=== PATIENT | female | born 1965 | race Caucasian/White ===

== ENCOUNTER 2022-01-20 12:21 | Outpatient (CLI) | payer BC, SELFPAY ==
--- NOTE | 2022-01-20 13:06 | MM_ITS ---
WS: [id number] BILATERAL 3D TOMOSYNTHESIS DIGITAL SCREENING MAMMOGRAPHY WITH CAD CLINICAL INFORMATION: SCREENING HISTORY: Screening mammogram. No current complaints. COMPARISON: None. TECHNIQUE: Bilateral CC and MLO views. FINDINGS: Scattered fibroglandular densities bilaterally. Punctate and lucent centered calcifications. No suspi cious focal mass, asymmetry, calcifications, or architectural distortion. No evidence of malignancy. MM/[id number] IMPRESSION: BI-RADS: 2-Benign FOLLOW UP: 1 Year Follow-up Recommend return to annual screening mammography.
== END 2022-01-20 12:22 | disposition home or self-care (01) ==
LOC: RAD 12:24
PROVIDERS: PCP Family Medicine; Visit Provider Family Medicine
DX: Z12.31 Encounter for screening mammogram for malignant neoplasm of breast (principal)
CPT/HCPCS: 77063; 77067

== ENCOUNTER 2023-01-23 12:55 | Outpatient (CLI) | payer BC, SELFPAY ==
--- NOTE | 2023-01-23 10:46 | MM_ITS ---
WS: [id number] BILATERAL 3D TOMOSYNTHESIS DIGITAL SCREENING MAMMOGRAPHY WITH CAD CLINICAL INFORMATION: SCREEN HISTORY: Screening mammogram. No current complaints. COMPARISON: 2021 TECHNIQUE: Bilateral CC and MLO views. FINDINGS: Scattered fibroglandular densities bilaterally. No suspicious focal mass, asymmetry, calcifications, or architectural distortion. No evidence of malignancy. Incidental punctate calcifications. MM/[id number] IMPRESSION: BI-RADS: 2-Benign FOLLOW UP: 1 Year Follow-up Recommend return to annual screening mammography.
== END 2023-01-23 12:56 | disposition home or self-care (01) ==
LOC: RAD 12:55
PROVIDERS: PCP Family Medicine; Visit Provider Family Medicine
DX: Z12.31 Encounter for screening mammogram for malignant neoplasm of breast (principal)
CPT/HCPCS: 77063; 77067

== ENCOUNTER → 2023-11-29 15:32 | Outpatient (BNVA) | payer BC, OTHER, SELFPAY | PROVIDERS: PCP Family Medicine; Visit Provider Emergency Medicine | DX: R39.9 Unspecified symptoms and signs involving the genitourinary system (principal); R50.9 Fever, unspecified | CPT/HCPCS: 93005 ==

== ENCOUNTER 2023-11-29 16:48 | Observation (INO) | payer BC, SELFPAY ==
[2023-11-29] VITALS (7 sets, daily range): BP systolic 116–162; BP diastolic 70–79; PULSE 91–132; RESP 16–18; TEMP 36.3–39.4; O2SAT 91–100; BMI 23.9
--- NOTE | 2023-11-29 16:50 | XRR_ITS ---
PROCEDURE INFORMATION: Exam: XR Chest Exam date and time: 11/29/2023 5:05 PM Age: 58 years old Clinical indication: Fever; Prior surgery; Surgery date: 6+ months; Surgery type: Gb TECHNIQUE: Imaging protocol: Radiologic exam of the chest. Views: 1 view. COMPARISON: CT kidney stone [id number] 11/29/2023 5:03 PM FINDINGS: Lungs: Unremarkable. No consolidation. Pleural spaces: Unremarkable. No pleural effusion. No pneumothorax. Heart/Mediastinum: Unremarkable. No cardiomegaly. Bones/joints: Unremarkable. XR/XR chest 1V portable [id number] IMPRESSION: No acute findings.
--- NOTE | 2023-11-29 16:54 | CTR_ITS ---
PROCEDURE INFORMATION: Exam: CT Abdomen And Pelvis Without Contrast Exam date and time: 11/29/2023 5:03 PM Age: 58 years old Clinical indication: Abdominal pain; Flank; Left; Prior surgery; Surgery date: 6+ months; Surgery type: Hyster, gb; Additional info: Left flank pain TECHNIQUE: Imaging protocol: Computed tomography of the abdomen and pelvis without contrast. Radiation optimization: All CT scans at this facility use at least one of these dose optimization techniques: automated exposure control; mA and/or kV adjustment per patient size (includes targeted exams where dose is matched to clinical indication); or iterative reconstruction. COMPARISON: No relevant prior studies available. RADIATION DOSE METRICS: Total DLP (mGy-cm): 430.68 FINDINGS: Lungs: Ground-glass opacity of the right middle lobe, likely atelectatic lung changes. Liver: Normal. No mass. Gallbladder and bile ducts: There has been a cholecystectomy. Pancreas: Normal. No ductal dilation. Spleen: Normal. No splenomegaly. Adrenal glands: Normal. No mass. Kidneys and ureters: Unilateral perinephric fat stranding of the left kidney, no significant hydroureteronephrosis. No obstructing nephroureterolithiasis. Stomach and bowel: See Urinary bladder finding. Appendix: No evidence of appendicitis. Intraperitoneal space: Unremarkable. No free air. No significant fluid collection. Vasculature: Unremarkable. No abdominal aortic aneurysm. Lymph nodes: Unremarkable. No enlarged lymph nodes. Urinary bladder: No recently passed stones in the bladder.Stomach, small bowel, and large bowel are nondilated. Reproductive: Unremarkable as visualized. Bones/joints: Unremarkable. No acute fracture. Soft tissues: Unremarkable. CT/CT kidney stone [id number] IMPRESSION: 1. Unilateral left renal perinephric fat stranding, which can be seen with infectious processes. 2. No hydronephrosis, or obstructing nephroureterolithiasis. 3. No recently passed stones in the bladder.
--- NOTE | 2023-11-29 16:58 | ECG_ITS ---
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 Measurements Intervals [place] Rate: 121 P: 31 TX: 124 QRS: 51 QRSD: 75 T: 46 QT: 296 QTc: 421 Interpretive Statements SINUS TACHYCARDIA NONSPECIFIC ST & T-WAVE ABNORMALITY ABNORMAL RHYTHM ECG No previous ECG available for comparison Electronically Signed On 11-29-2023 18:55:01 CDT by Faisal Chicas M.D. [email or web address] the Interview/store/OM/[id number]
--- NOTE | 2023-11-29 17:04 | ED_ITS ---
Documented by User: Ivy Nevarez MD 11/29/23 17:07 HPI - Weakness 2 General: Chief complaint: Weakness Stated complaint: WEAKNESS; UTI Time Seen by Provider: 11/29/23 16:50 Source: patient Mode of arrival: ambulatory Limitations: no limitations History of Present Illness: 58-year-old female who has a history of urinary tract infections along with kidney stones states that over the last 2 days she has been having some fatigue she states that she started having odorous urine she is also been febrile she is febrile here. She states she has had some left lower abdominal pain and left- sided flank pain states the pain is mild in nature but has had previous kidney stones. Denies any cough. Associated symptoms: Reports dysuria and fever(s); Denies chest pain, chills, headache(s), nausea or vomiting Review of Systems 2 Const: Reports: fever(s) and fatigue; Denies: chills, body aches or change in appetite ENMT: Denies: throat pain or dental pain Card: Denies: chest pain Resp: Denies: dyspnea GI: Reports: abdominal pain; Denies: nausea, vomiting or diarrhea : Reports: flank pain and dysuria Musc: Denies: neck pain or back pain Skin/Breast: Denies: rash Neuro: Denies: headache(s) Psych: Denies: depression Physical Exam 2 Const: COMMON NORMALS: no acute distress, patient oriented x3 and healthy appearing HENMT: COMMON NORMALS: normocephalic and atraumatic HEAD & SCALP: n ormocephalic and atraumatic Eye: COMMON NORMALS: conjunctivae normal CONJUNCTIVA: Yes conjunctivae normal Neck/C-Spine: COMMON NORMALS: full ROM and supple Chest: COMMONS NORMALS: normal inspection of the chest Resp: COMMON NORMALS: normal respiratory effort, No retractions, No use of accessory muscles and clear to auscultation bilaterally AUSCULTATION: clear to auscultation bilaterally Cardio: COMMON NORMALS: regular rhythm and No murmurs present (Cardio) R ATE: tachycardic RHYTHM: regular rhythm GI: COMMON NORMALS: Normal to inspection, nondistended, normoactive bowel sounds present, Soft to palpation, non-tender and no masses PALPATION: Yes Soft to palpation Extremity: COMMON NORMALS: normal to inspection and full ROM Neuro: COMMON NORMALS: patient oriented x3, moves all extremities and no focal motor deficits Psych: COMMON NORMALS: mental status grossly normal, Normal thought process present and cooperative THOUGHT PROCESS: Normal thought process present Skin: COMMON NORMALS: no rashes or lesions noted and no wounds GENERAL SKIN EXAM: no rashes or lesions noted Course 2 Vital Signs: Vital signs: Vital Signs Temperature 97.4 F L 11/29/23 20:22 Pulse Rate 91 11/29/23 20:22 Respiratory Rate 17 11/29/23 20:22 Blood Pressure 116/72 11/29/23 20:22 Pulse Oximetry 91 11/29/23 20:22 Oxygen Delivery Me thod Room Air 11/29/23 20:22 MDM - Weakness Lab Data 11/29/23 16:33 11/29/23 16:33 Radiology Impressions Chest X-Ray 11/29/23 16:50 IMPRESSION: No acute findings. Abdomen/Pelvis CT 11/29/23 16:54 IMPRESSION: 1. Unilateral left renal perinephric fat stranding, which can be seen with infectious processes. 2. No hydronephrosis, or obstructing nephroureterolithiasis. 3. No recently passed stones in the bladder. Laboratory Results WBC 21.75 10^3/uL (3.29-11.43) H 11/29/23 16:33 RBC 4.70 10^6/uL (3.85-5.65) 11/29/23 16:33 Hgb 14.20 g/dL (11.27-16.99) 11/29/23 16:33 Hct 42.0 % (36-47) 11/29/23 16:33 MCV 89.4 fl (85-98) 11/29/23 16:33 MCH 30.2 pg (27-33) 11/29/23 16:33 MCHC 33.8 g/dL (30-55) 11/29/23 16:33 RDW 12.6 % (12.1-15.1) 11/29/23 16:33 Plt Count 333 10^3/cmm (157-399) 11/29/23 16:33 MPV 10.4 fL (7.4-10.4) 11/29/23 16:33 Neut % (Auto) 84.3 % 11/29/23 16:33 Lymph % (Auto) 6.5 % 11/29/23 16:33 [place] % (Auto) 8.6 % 11/29/23 16:33 Eos % (Auto) 0.0 % 11/29/23 16:33 Baso % (Auto) 0.1 % 11/29/23 16:33 Neut # (Auto) 18.34 10^3/uL (1.8-7.7) H 11/29/23 16:33 Lymph # (Auto) 1.4 10^3/uL (0.8-4.8) 11/29/23 16:33 [place] # (Auto) 1.9 10^3/uL (0.2-0.9) H 11/29/23 16:33 Eos # (Auto) 0.0 10^3/uL (0.0-0.8) 11/29/23 16:33 Baso # (Auto) 0.0 10^3/uL (0.0-0.1) 11/29/23 16:33 Nucleated RBC % (auto) 0 % 11/29/23 16: Nucleated RBCs # 0.0 /100WBC 11/29/23 16:33 Sodium 135 mmol/L (136-145) L 11/29/23 16:33 Potassium 4.3 mmol/L (3.5-5.1) 11/29/23 16:33 Chloride 97 mmol/L (98-107) L 11/29/23 16:33 Carbon Dioxide 26 mmol/L (22-29) 11/29/23 16:33 Anion Gap 16.3 (5-19) 11/29/23 16:33 BUN 15 mg/dL (6-20) 11/29/23 16:33 Creatinine 0.9 mg/dL (0.5-0.9) 11/29/23 16:33 GFR Calculation 64.8 mL/min (90-130) L 11/29/23 16:33 Glucose 128 mg/dL (65-115) H 11/29/23 16:33 Calculated Osmolality 282 mOsm/kg (285-295) L 11/29/23 16:33 Lactic Acid 1.3 mmol/L (0.5-2.2) 11/29/23 16:33 Calcium 9.9 mg/dL (8.5-10.5) 11/29/23 16:33 Total Bilirubin 0.9 mg/dL (0.15-1.2) 11/29/23 16:33 AST 20 U/L (0-32) 11/29/23 16:33 ALT 19 U/L (0-33) 11/29/23 16:33 Alkaline Phosphatase 136 U/L (35-105) H 11/29/23 16:33 Total Protein 8.3 g/dL (6.6-8.7) 11/29/23 16:33 Albumin 4.4 g/dL (3.5-5.2) 11/29/23 16:33 Globulin 3.9 g/dL (1.3-4.6) 11/29/23 16:33 Lipase 11 U/L (13-60) L 11/29/23 16:33 Urine Color Yellow (Yellow) 11/29/23 17:53 Urine Appearance Cloudy (CLEAR) A 11/29/23 17:53 Urine pH 5 (5-7) 11/29/23 17:53 Ur Specific [place] 1.020 (1.005-1.030) 11/29/23 17:53 Urine Protein 1+ (Negative) H 11/29/23 17:53 Urine Glucose (UA) Norm (Normal) 11/29/23 17:53 Urine Ketones 1+ (Negative) H 11/29/23 17:53 Urine Blood 3+ (Negative) H 11/29/23 17:53 Urine Nitrate Positive (Negative) H 11/29/23 17:53 Urine Bilirubin Neg (Negative) 11/29/23 17:53 Urine Urobilinogen Norm mg/dL (Negative) 11/29/23 17:53 Ur Leukocyte Esterase 2+ (Negative) H 11/29/23 17:53 Urine RBC 5-10 /hpf (0-2) H 11/29/23 17:53 Urine WBC 25-40 /hpf (0-5) H 11/29/23 17:53 Ur Squamous Epith Cells 0-4 /hpf (0-5) H 11/29/23 17:53 Amorphous Sediment Not Reportable 11/29/23 17:53 Urine Bacteria 2+ /hpf (NONE) H 11/29/23 17:53 Influenza Type A Ag negative (Negative) 11/29/23 17:13 Influenza Type B Ag negative (Negative) 11/29/23 17:13 SARS-CoV-2 Ag (Rapid) negative (Negative) 11/29/23 17:13 Discharge Plan Discharge Patient Disposition: Admitted As Inpatient Admit Provider: Blane Helms Clinical Impression: Pyelonephritis Condition: Stable Coding Level of Care Code ED Rolloff Driver for Chg Fwd Documented by User: Palmer Martinez, DO 11/29/23 22:40 HPI - Weakness 2 General: Chief complaint: Weakness Stated complaint: WEAKNESS; UTI Time Seen by Provider: 11/29/23 16:50 Course 2 Vital Signs: Vital signs: Vital Signs Temperature 97.4 F L 11/29/23 20:22 Pulse Rate 91 11/29/23 20:22 Respiratory Rate 17 11/29/23 20:22 Blood Pressure 116/72 11/29/23 20:22 Pulse Oximetry 91 11/29/23 20:22 Oxygen Delivery Me thod Room Air 11/29/23 20:22 MDM - Weakness Medical Decision Making 58-year-old female checked out at shift change. This young lady has flank pain, with a high fever 102.9. Her white blood cell count is 22. Lactate is normal. Chest x-ray is negative. CT shows left renal perinephric fat stranding consistent with her urinalysis. She has pyelonephritis. No stone or obstruction noted. With her significant fever and leukocytosis, with findings on CT, beneficial to hospitalize. She is received a sepsis bolus as well as IV Rocephin. We have a call out to the hospitalist. Lab Data 11/29/23 16:33 11/29/23 16:33 Radiology Impressions Chest X-Ray 11/29/23 16:50 IMPRESSION: No acute findings. Abdomen/Pelvis CT 11/29/23 16:54 IMPRESSION: 1. Unilateral left renal perinephric fat stranding, which can be seen with infectious processes. 2. No hydronephrosis, or obstructing nephroureterolithiasis. 3. No recently passed stones in the bladder. Laboratory Results WBC 21.75 10^3/uL (3.29-11.43) H 11/29/23 16: RBC 4.70 10^6/uL (3.85-5.65) 11/29/23 16:33 Hgb 14.20 g/dL (11.27-16.99) 11/29/23 16:33 Hct 42.0 % (36-47) 11/29/23 16:33 MCV 89.4 fl (85-98) 11/29/23 16:33 MCH 30.2 pg (27-33) 11/29/23 16: MCHC 33.8 g/dL (30-55) 11/29/23 16:33 RDW 12.6 % (12.1-15.1) 11/29/23 16: Plt Count 333 10^3/cmm (157-399) 11/29/23 16: MPV 10.4 fL (7.4-10.4) 11/29/23 16:33 Neut % (Auto) 84.3 % 11/29/23 16:33 Lymph % (Auto) 6.5 % 11/29/23 16:33 [place] % (Auto) 8.6 % 11/29/23 16:33 Eos % (Auto) 0.0 % 11/29/23 16:33 Baso % (Auto) 0.1 % 11/29/23 16: Neut # (Auto) 18.34 10^3/uL (1.8-7.7) H 11/29/23 16:33 Lymph # (Auto) 1.4 10^3/uL (0.8-4.8) 11/29/23 16:33 [place] # (Auto) 1.9 10^3/uL (0.2-0.9) H 11/29/23 16:33 Eos # (Auto) 0.0 10^3/uL (0.0-0.8) 11/29/23 16: Baso # (Auto) 0.0 10^3/uL (0.0-0.1) 11/29/23 16: Nucleated RBC % (auto) 0 % 11/29/23 16: Nucleated RBCs # 0.0 /100WBC 11/29/23 16: Sodium 135 mmol/L (136-145) L 11/29/23 16:33 Potassium 4.3 mmol/L (3.5-5.1) 11/29/23 16:33 Chloride 97 mmol/L (98-107) L 11/29/23 16:33 Carbon Dioxide 26 mmol/L (22-29) 11/29/23 16:33 Anion Gap 16.3 (5-19) 11/29/23 16:33 BUN 15 mg/dL (6-20) 11/29/23 16:33 Creatinine 0.9 mg/dL (0.5-0.9) 11/29/23 16:33 GFR Calculation 64.8 mL/min (90-130) L 11/29/23 16:33 Glucose 128 mg/dL (65-115) H 11/29/23 16:33 Calculated Osmolality 282 mOsm/kg (285-295) L 11/29/23 16:33 Lactic Acid 1.3 mmol/L (0.5-2.2) 11/29/23 16:33 Calcium 9.9 mg/dL (8.5-10.5) 11/29/23 16:33 Total Bilirubin 0.9 mg/dL (0.15-1.2) 11/29/23 16:33 AST 20 U/L (0-32) 11/29/23 16:33 ALT 19 U/L (0-33) 11/29/23 16:33 Alkaline Phosphatase 136 U/L (35-105) H 11/29/23 16:33 Total Protein 8.3 g/dL (6.6-8.7) 11/29/23 16:33 Albumin 4.4 g/dL (3.5-5.2) 11/29/23 16:33 Globulin 3.9 g/dL (1.3-4.6) 11/29/23 16:33 Lipase 11 U/L (13-60) L 11/29/23 16:33 Urine Color Yellow (Yellow) 11/29/23 17:53 Urine Appearance Cloudy (CLEAR) A 11/29/23 17:53 Urine pH 5 (5-7) 11/29/23 17:53 Ur Specific [place] 1.020 (1.005-1.030) 11/29/23 17:53 Urine Protein 1+ (Negative) H 11/29/23 17:53 Urine Glucose (UA) Norm (Normal) 11/29/23 17:53 Urine Ketones 1+ (Negative) H 11/29/23 17:53 Urine Blood 3+ (Negative) H 11/29/23 17:53 Urine Nitrate Positive (Negative) H 11/29/23 17:53 Urine Bilirubin Neg (Negative) 11/29/23 17:53 Urine Urobilinogen Norm mg/dL (Negative) 11/29/23 17:53 Ur Leukocyte Esterase 2+ (Negative) H 11/29/23 17:53 Urine RBC 5-10 /hpf (0-2) H 11/29/23 17:53 Urine WBC 25-40 /hpf (0-5) H 11/29/23 17:53 Ur Squamous Epith Cells 0-4 /hpf (0-5) H 11/29/23 17:53 Amorphous Sediment Not Reportable 11/29/23 17:53 Urine Bacteria 2+ /hpf (NONE) H 11/29/23 17:53 Influenza Type A Ag negative (Negative) 11/29/23 17:13 Influenza Type B Ag negative (Negative) 11/29/23 17:13 SARS-CoV-2 Ag (Rapid) negative (Negative) 11/29/23 17:13 All radiology interpretation(s) finalized by discharge Discharge Plan Discharge Patient Disposition: Admitted As Inpatient Admit Provider: Blane Helms Clinical Impression: Pyelonephritis Condition: Stable Coding Level of Care Code ED Rolloff Driver for Indu Joseph
[2023-11-29 17:10] LABS: Basophils % 0.1 %; Lymphocytes # 1.4 10^3/uL (0.8-4.8); Lymphocytes % 6.5 %; Mean Corpuscular HGB Conc 33.8 g/dL (30-55); Mean Corpuscular Hemoglobin 30.2 pg (27-33); Mean Corpuscular Volume 89.4 fl (85-98); Mean Platelet Volume 10.4 fL (7.4-10.4); Monocytes # 1.9 10^3/uL (0.2-0.9); Monocytes % 8.6 %; Neutrophils # 18.34 10^3/uL (1.8-7.7); Neutrophils % 84.3 %; Nucleated Red Blood Cells % 0 %; Platelet Count 333 10^3/cmm (157-399); Red Cell Distribution Width 12.6 % (12.1-15.1); White Blood Count 21.75 10^3/uL (3.29-11.43)
[2023-11-29] MEDS: acetaminophen 500 mg Tablet 1000 MG PO (17:17)
[2023-11-29] MEDS: ketorolac 30 mg/mL INJ 15 MG IVP (17:17)
[2023-11-29 17:29] LABS: Lactic Sepsis W/Reflex 1.3 mmol/L (0.5-2.2)
[2023-11-29 17:30] LABS: Alanine Aminotransferase 19 U/L (0-33); Albumin Level 4.4 g/dL (3.5-5.2); Alkaline Phosphatase 136 U/L (35-105); Anion Gap 16.3 (5-19); Aspartate Amino Transferase 20 U/L (0-32); Blood Urea Nitrogen 15 mg/dL (6-20); Calcium 9.9 mg/dL (8.5-10.5); Carbon Dioxide 26 mmol/L (22-29); Chloride 97 mmol/L (98-107); Globulin 3.9 g/dL (1.3-4.6); Glomerular Filtration Rate 64.8 mL/min (90-130); Glucose 128 mg/dL (65-115); Lipase 11 U/L (13-60); Osmolality Calculated 282 mOsm/kg (285-295); Potassium 4.3 mmol/L (3.5-5.1); Sodium 135 mmol/L (136-145); Total Bilirubin 0.9 mg/dL (0.15-1.2); Total Protein 8.3 g/dL (6.6-8.7)
[2023-11-29] MEDS: sodium chloride 0.9% 1,000 ML 999 ML IV ×3 (17:40→21:07)
[2023-11-29] MEDS: cefTRIAXone 1,000 MG in sodium chloride 0.9% (plus) 50 ML 100 MG IV (17:40)
[2023-11-29 17:41] LABS: Influenza A by IFA negative (Negative); Influenza B by IFA negative (Negative); SARS Covid-2 Antigen negative (Negative)
[2023-11-29 18:07] LABS: Bilirubin Urine Neg (Negative); Blood Urine 3+ (Negative); Glucose Urine UA Norm (Normal); Ketones Urine 1+ (Negative); Nitrate Urine Positive (Negative); Protein Urine 1+ (Negative); Urine Appearance Cloudy (CLEAR); Urine Color Yellow (Yellow); Urobilinogen Urine Norm (Negative); pH Urine 5 (5-7)
[2023-11-29 18:08] LABS: Add Urine Culture? Yes; Add Urine Microscopic? YES; Bacteria Urine 2+ /hpf; Leukocyte Esterase Urine 2+ (Negative); Squamous Epithelial Cell Urine 0-4 /hpf (0-5); WBC Urine 25-40 /hpf (0-5)
--- NOTE | 2023-11-29 19:43 | P.HP_ITS ---
Providers/Chief Complaint 2 Primary Care Provider: Rich Jones Chief Complaint: WEAKNESS; UTI History of Present Illness Renuka Peoples is a 58 year old female with a past medical history significant for GERD, chronic pain, urinary tract infections, and prior nephrolithiasis who presents emergency department with fatigue and urinary complaints. Patient reports symptoms started on Thursday. She endorses fever, left lower quadrant abdominal pain, and left-sided flank pain. She currently rates the pain 6 out of 10. It was worse before the pain medications. Exertion worsens. Rest improves. Patient reports a history of recurrent UTIs as well as kidney stones require removal. In the emergency department, patient was found to have left-sided pyelonephritis. There is no hydronephrosis or obstructing stone. She was started on ceftriaxone. Review of Systems 2 Narrative: A complete review of systems was obtained and is negative except as stated in HPI. Medications/Allergies Home Medications Medication Instructions Recorded Confirmed Last Taken Type meloxicam 7.5 mg tablet 7.5 mg PO DAILY 11/29/23 11/29/23 Unknown History omeprazole 20 mg capsule,delayed 20 mg PO DAILY 11/29/23 11/29/23 Unknown History release pravastatin 10 mg tablet 10 mg PO DAILY 11/29/23 11/29/23 Unknown History tramadol 50 mg tablet 50 mg PO Q6H PRN 11/29/23 11/29/23 Unknown History Allergies Allergy/AdvReac Type Severity Reaction Status Date / Time phenobarbital Allergy Mild rash/fever Verified 11/29/23 16:56 phenytoin [From Dilantin] Allergy Mild rash/fever Verified 11/29/23 16:56 PFSH Acute 2 PFSH: Medical History Nephrolithiasis Surgical History History of hysterectomy History of cholecystectomy Family History Father Heart disease Mother Heart disease Social History Smoking and tobacco/nicotine status: never used tobacco/nicotine Alcohol intake: never Substance/Drug Use: never Vitals/I&O/Wt Last Vital Signs Temp 102.9 F H 11/29/23 16:50 Pulse 106 H 11/29/23 19:32 Resp 16 11/29/23 19:32 BP 142/79 11/29/23 19:32 Pulse Ox 96 11/29/23 19:32 O2 Del Method Room Air 11/29/23 19:32 Weight last 48 hrs Weight 61.235 kg Physical Exam 2 Narrative: General: Patient is awake appears fatigued but pleasant. Head: Normocephalic. Atraumatic. EOM intact. Mucous membranes are dry. Neck: No JVD. Cardiovascular: Mildly tachycardic. No gallops. No murmurs. No peripheral edema. Lungs: Clear to auscultation, no use of accessory muscles, no crackles or wheezes. Skin: No jaundice. No rashes. Abdomen: Normal bowel sounds, abdomen soft. Extremities: No cyanosis or clubbing. Musculoskeletal: No swollen or erythematous joints. Neurological: Moves all 4 extremities. No myoclonus. Data 11/29/23 16:33 11/29/23 16:33 Micro: Microbiology 11/29/23 17:25 Blood Culture - Preliminary Blood SPECIMEN COLLECTED 11/29/23 17:18 Blood Culture - Preliminary Blood SPECIMEN COLLECTED A&P Assessment and plan (1) Pyelonephritis: SIRS: Tachycardic, leukocytosis, febrile CT scan reviewed, left-sided perinephric fat stranding noted; no hydronephrosis or obstructing stone Start ceftriaxone Start IV fluids Pain control Follow cultures Supportive care (2) Dehydration: Start IV fluids Antiemetics as needed Repeat labs in a.m. (3) GERD (gastroesophageal reflux disease): Continue PPI (4) Chronic pain: Continue home tramadol IV analgesics as needed for breakthrough pain Plan DVT prophylaxis: Lovenox CODE STATUS: Full code Attestations 2 Medical Necessity Statement*: Patient presents with pyelonephritis with expected hospitalization not to cross 2 midnights for IV fluid resuscitation, IV antibiotics, analgesics and supportive care. Coding Level of Care Code Acute Code for [facility] Diagnoses Pyelonephritis N12 Dehydration E86.0 GERD (gastroesophageal reflux disease) K21.9 Chronic pain G89.29
[2023-11-29] MEDS: enoxaparin 40 mg/0.4 mL Syringe SUBCUT (21:15)
[2023-11-29] MEDS: dextrose 5%-sod chloride 0.45% 1,000 ML 75 ML IV (22:21)
[2023-11-30] VITALS (8 sets, daily range): BP systolic 105–120; BP diastolic 65–71; PULSE 84–114; RESP 16–18; TEMP 36.8–38.3; O2SAT 94–99
[2023-11-30] MEDS: morphine 4 mg/mL SDV 1 mL 2 MG IVP ×2 (02:24→11:49)
[2023-11-30] MEDS: ondansetron 2 mg/ML SDV 2 mL 4 MG IVP (02:24)
[2023-11-30 03:31] LABS: Basophils % 0.1 %; Eosinophils % 0.1 %; Hematocrit 33.9 % (36-47); Lymphocytes # 1.7 10^3/uL (0.8-4.8); Lymphocytes % 12.5 %; Mean Corpuscular HGB Conc 32.4 g/dL (30-55); Mean Corpuscular Hemoglobin 29.3 pg (27-33); Mean Corpuscular Volume 90.4 fl (85-98); Mean Platelet Volume 9.4 fL (7.4-10.4); Monocytes # 1.5 10^3/uL (0.2-0.9); Monocytes % 10.8 %; Neutrophils # 10.56 10^3/uL (1.8-7.7); Neutrophils % 76.2 %; Nucleated Red Blood Cells % 0 %; Platelet Count 301 10^3/cmm (157-399); Red Blood Count 3.75 10^6/uL (3.85-5.65); Red Cell Distribution Width 12.8 % (12.1-15.1); White Blood Count 13.87 10^3/uL (3.29-11.43)
[2023-11-30 03:50] LABS: Anion Gap 10.7 (5-19); Blood Urea Nitrogen 10 mg/dL (6-20); Calcium 8.3 mg/dL (8.5-10.5); Carbon Dioxide 24 mmol/L (22-29); Chloride 110 mmol/L (98-107); Creatinine Clr Calc Pharmacy 79.2398; Glomerular Filtration Rate 86.6 mL/min (90-130); Glucose 133 mg/dL (65-115); Osmolality Calculated 293 mOsm/kg (285-295); Phosphorus 1.3 mg/dL (2.5-4.5); Potassium 3.7 mmol/L (3.5-5.1); Sodium 141 mmol/L (136-145)
--- NOTE | 2023-11-30 08:31 | PC.NURSE ---
Patient complaining of a headache, rating it 5/10. Currently afebrile. Physician notified.
[2023-11-30] MEDS: acetaminophen 325 mg Tablet 650 MG PO ×2 (08:50→16:34)
[2023-11-30] MEDS: pantoprazole DR 40 mg Tablet PO (08:51)
[2023-11-30] MEDS: atorvastatin 40 mg Tablet 20 MG PO (08:51)
[2023-11-30] MEDS: cefTRIAXone 1,000 MG in sodium chloride 0.9% (plus) 50 ML 100 MG IV (09:24)
--- NOTE | 2023-11-30 09:44 | PC.CHAP ---
Pastoral Care Encounter/Spiritual Assessment Type of Contact [] Declined paleology teacher visit [] Patient/Family/Request visit [] Outpatient visit [] Follow-up visit [] Physician referral [] Code/Alert [x] Routine visit [] Staff referral [] Actively dying [] Patient sleeping [] Family support [] [] Out of room [] Palliative care [] [] Receiving care in room [] Pre-surgical visit [] Trauma [] Long length of stay [] ICU visit [] Other: Relational/Emotional Strength [] Patient feels connected with others/family/visitors/staff [] Distress [] Loneliness/isolation [] Abandonment Spirituality of Patient [x] Person of Violet [x] Attends Anglican of their Violet [x] Believes in Prayer [x] Reads Bible or Zoroastrian materials [] There are Spiritual issues to be addressed Rim Technician Interventions [x] Prayer [x] Active listening [] Non-anxious presence [] Spiritual/emotional support [] Crisis/trauma care [] Spiritual counseling [] Bereavement support [] Provided bereavement packet [] Provided Bible/devotional materials [] Provided toy/stuffed animal, coloring book to patient or family member [] Provided Communion [] Anointing/[place] [] Salvation [x] Completed spiritual assessment [] Other: Impact on Illness or Injury [] Angry [] Fearful [] Anxious [] Often cries [] Exhaustion [] Unable to work [] Unable to attend roman catholic [] Unable to walk/stand [] Unable to read [] Unable to drive [] Unable to eat/drink [] Unable to sleep [] Unable to be with family [] Patient intubated [] Other: Summary Time spent with patient 10min
[2023-11-30] MEDS: dextrose 5%-sod chloride 0.45% 1,000 ML 75 ML IV ×2 (12:48→23:23)
--- NOTE | 2023-11-30 15:49 | P.PN_ITS ---
Subjective 2 Subjective: Patient feeling some better. Headache improved with Tylenol this morning. Less nauseous but not wanting to eat a regular diet. Just asking for Jell-O. Still with some pain in the left flank. Vitals/I&O/Wt Last Vital Signs Temp 98.3 F 11/30/23 12:00 Pulse 84 11/30/23 12:00 Resp 17 11/30/23 12:00 BP 105/66 11/30/23 12:00 Pulse Ox 97 11/30/23 12:00 O2 Del Method Room Air 11/30/23 12:00 11/30/23 11/30/23 11/30/23 06:59 14:59 22:59 Intake Total 480 / 3770 1890 / 1890 Balance 480 / 3770 1890 / 1890 Weight last 48 hrs Weight 61.235 kg Weight 61.235 kg Weight 61.235 kg Physical Exam 2 Narrative: No acute distress seen sitting up in bed. Heart: Regular normal S1-S2 without murmurs clicks gallops or rubs Lungs clear to auscultation without wheezes rales or rhonch Abdomen soft nontender nondistended positive bowel sounds no hepatosplenomegaly Left flank pain to palpation Extremities no clubbing cyanosis or edema i Data 11/30/23 03:16 11/30/23 03:16 Micro: Microbiology 11/29/23 17:25 Blood Culture - Preliminary Blood SPECIMEN COLLECTED 11/29/23 17:18 Blood Culture - Preliminary Blood SPECIMEN COLLECTED CT Abd/Pel: Radiologist's impression: IMPRESSION: 1. Unilateral left renal perinephric fat stranding, which can be seen with infectious processes. 2. No hydronephrosis, or obstructing nephroureterolithiasis. 3. No recently passed stones in the bladder. A&P Assessment and plan (1) Pyelonephritis: SIRS: Tachycardic, leukocytosis, febrile-now with marked improvement of WBC, mild tachycardia: Mild fever CT scan reviewed, left-sided perinephric fat stranding noted; no hydronephrosis or obstructing stone Continue ceftriaxone Continue IV fluids Pain control Follow cultures Supportive care Order soft diet (2) Dehydration: Continue IV fluids Antiemetics as needed Repeat labs in a.m. (3) GERD (gastroesophageal reflux disease): Continue PPI Qualifiers: Esophagitis presence: esophagitis presence not specified Qualified Code(s): K21.9 - Gastro-esophageal reflux disease without esophagitis (4) Chronic pain: Continue home tramadol IV analgesics as needed for breakthrough pain Qualifiers: Chronic pain type: other chronic pain Qualified Code(s): G89.29 - Other chronic pain Plan DVT prophylaxis: Lovenox CODE STATUS: Full code Attestations 2 Medical Necessity Statement*: Patient requires continued hospitalization for pyelonephritis Coding Level of Care Code Acute Code for [facility] Diagnoses Pyelonephritis N12 Dehydration E86.0 Gastroesophageal reflux disease, unspecified whether esophagitis present K21.9 Esophagitis presence: esophagitis presence not specified Other chronic pain G89.29 Chronic pain type: other chronic pain
[2023-11-30] MEDS: enoxaparin 40 mg/0.4 mL Syringe SUBCUT (20:02)
[2023-11-30] MEDS: ketorolac 10 mg Tablet PO (23:23)
[2023-12-01 04:00] VITALS: BP 128/77; PULSE 86; RESP 18; TEMP 36.8; O2SAT 99
[2023-12-01 07:56] VITALS: BP 132/76; PULSE 92; RESP 18; TEMP 36.1; O2SAT 96
[2023-12-01] MEDS: atorvastatin 40 mg Tablet 20 MG PO (08:41)
[2023-12-01] MEDS: cefTRIAXone 1,000 MG in sodium chloride 0.9% (plus) 50 ML 100 MG IV (08:41)
[2023-12-01] MEDS: pantoprazole DR 40 mg Tablet PO (08:41)
--- NOTE | 2023-12-01 10:26 | P.DS_ITS ---
Discharge Providers Date of Admission: 11/29/23 20:22 Date of Discharge: December 01, 2023 Attending Provider at Admission: Blane Helms MD Attending Provider at Discharge: Medhat Peraza DO Primary Care Provider: Rich Jones Diagnoses at Discharge Discharge Diagnosis (1) Pyelonephritis: Status: Acute (2) Dehydration: Status: Acute (3) GERD (gastroesophageal reflux disease): Status: Acute Qualifiers: Esophagitis presence: esophagitis presence not specified Qualified Code(s): K21.9 - Gastro-esophageal reflux disease without esophagitis (4) Chronic pain: Status: Chronic Qualifiers: Chronic pain type: other chronic pain Qualified Code(s): G89.29 - Other chronic pain Reason for Visit Reason for Visit: WEAKNESS; UTI Hospital Course Hospital Course Patient was admitted for left-sided pyelonephritis. She has a history of a left ureteral stone that was removed at [facility] a few months ago. Patient was started on ceftriaxone and given IV fluids. Patient improved quickly. Her fever defervesced over the past 24 hours. She is feeling much improved. There is concern for structural abnormality given the fact that patient had a stone in the left ureter and now has a pyelonephritis. She is instructed to follow-up with her urologist that she saw at [facility] a few months back. Patient will be discharged home on Cipro for a total of 10 days. Cultures will be followed up and if changes need to be made we will work with her PCP. Physical Exam Narrative: No acute distress Heart regular normal S1-S2 without murmurs clicks gallops or rubs Lungs clear to auscultation without wheezes rales or rhonchi Abdomen soft nontender nondistended positive bowel sounds Very mild pain to palpation of the left CVA Extremities no clubbing cyanosis or edema Discharge Data Studies Completed and Pending Completed Studies During Hospitalization Category Date Time Status CT abdomen renal stone [CT kidney stone [id number]] Stat Cat Scan 11/29/23 16:54 Completed XR chest 1V portable [id number] Stat Exams 11/29/23 16:50 Completed Pending at discharge Category Date Time Status Blood Culture Stat Lab 11/29/23 17:25 Results Urine Culture Stat Lab 11/29/23 17:53 Results Radiology Impressions Chest X-Ray 11/29/23 16:50 IMPRESSION: No acute findings. Abdomen/Pelvis CT 11/29/23 16:54 IMPRESSION: 1. Unilateral left renal perinephric fat stranding, which can be seen with infectious processes. 2. No hydronephrosis, or obstructing nephroureterolithiasis. 3. No recently passed stones in the bladder. Laboratory Results WBC 13.87 10^3/uL (3.29-11.43) H 11/30/23 03:16 RBC 3.75 10^6/uL (3.85-5.65) L 11/30/23 03:16 Hgb 11.00 g/dL (11.27-16.99) L 11/30/23 03:16 Hct 33.9 % (36-47) L 11/30/23 03:16 MCV 90.4 fl (85-98) 11/30/23 03:16 MCH 29.3 pg (27-33) 11/30/23 03:16 MCHC 32.4 g/dL (30-55) 11/30/23 03:16 RDW 12.8 % (12.1-15.1) 11/30/23 03:16 Plt Count 301 10^3/cmm (157-399) 11/30/23 03:16 MPV 9.4 fL (7.4-10.4) 11/30/23 03:16 Neut % (Auto) 76.2 % 11/30/23 03:16 Lymph % (Auto) 12.5 % 11/30/23 03:16 [place] % (Auto) 10.8 % 11/30/23 03:16 Eos % (Auto) 0.1 % 11/30/23 03:16 Baso % (Auto) 0.1 % 11/30/23 03:16 Neut # (Auto) 10.56 10^3/uL (1.8-7.7) H 11/30/23 03:16 Lymph # (Auto) 1.7 10^3/uL (0.8-4.8) 11/30/23 03:16 [place] # (Auto) 1.5 10^3/uL (0.2-0.9) H 11/30/23 03:16 Eos # (Auto) 0.0 10^3/uL (0.0-0.8) 11/30/23 03:16 Baso # (Auto) 0.0 10^3/uL (0.0-0.1) 11/30/23 03:16 Nucleated RBC % (auto) 0 % 11/30/23 03:16 Nucleated RBCs # 0.0 /100WBC 11/30/23 03:16 Sodium 141 mmol/L (136-145) 11/30/23 03:16 Potassium 3.7 mmol/L (3.5-5.1) 11/30/23 03:16 Chloride 110 mmol/L (98-107) H 11/30/23 03:16 Carbon Dioxide 24 mmol/L (22-29) 11/30/23 03:16 Anion Gap 10.7 (5-19) 11/30/23 03:16 BUN 10 mg/dL (6-20) 11/30/23 03:16 Creatinine 0.7 mg/dL (0.5-0.9) 11/30/23 03:16 GFR Calculation 86.6 mL/min (90-130) L 11/30/23 03:16 Glucose 133 mg/dL (65-115) H 11/30/23 03:16 Calculated Osmolality 293 mOsm/kg (285-295) 11/30/23 03:16 Lactic Acid 1.3 mmol/L (0.5-2.2) 11/29/23 16:33 Calcium 8.3 mg/dL (8.5-10.5) L 11/30/23 03:16 Phosphorus 1.3 mg/dL (2.5-4.5) L 11/30/23 03:16 Magnesium 2.0 mg/dL (1.7-2.3) 11/30/23 03:16 Total Bilirubin 0.9 mg/dL (0.15-1.2) 11/29/23 16:33 AST 20 U/L (0-32) 11/29/23 16:33 ALT 19 U/L (0-33) 11/29/23 16:33 Alkaline Phosphatase 136 U/L (35-105) H 11/29/23 16:33 Total Protein 8.3 g/dL (6.6-8.7) 11/29/23 16:33 Albumin 4.4 g/dL (3.5-5.2) 11/29/23 16:33 Globulin 3.9 g/dL (1.3-4.6) 11/29/23 16:33 Lipase 11 U/L (13-60) L 11/29/23 16:33 Urine Color Yellow (Yellow) 11/29/23 17:53 Urine Appearance Cloudy (CLEAR) A 11/29/23 17:53 Urine pH 5 (5-7) 11/29/23 17:53 Ur Specific [place] 1.020 (1.005-1.030) 11/29/23 17:53 Urine Protein 1+ (Negative) H 11/29/23 17:53 Urine Glucose (UA) Norm (Normal) 11/29/23 17:53 Urine Ketones 1+ (Negative) H 11/29/23 17:53 Urine Blood 3+ (Negative) H 11/29/23 17:53 Urine Nitrate Positive (Negative) H 11/29/23 17:53 Urine Bilirubin Neg (Negative) 11/29/23 17:53 Urine Urobilinogen Norm mg/dL (Negative) 11/29/23 17:53 Ur Leukocyte Esterase 2+ (Negative) H 11/29/23 17:53 Urine RBC 5-10 /hpf (0-2) H 11/29/23 17:53 Urine WBC 25-40 /hpf (0-5) H 11/29/23 17:53 Ur Squamous Epith Cells 0-4 /hpf (0-5) H 11/29/23 17:53 Amorphous Sediment Not Reportable 11/29/23 17:53 Urine Bacteria 2+ /hpf (NONE) H 11/29/23 17:53 Influenza Type A Ag negative (Negative) 11/29/23 17:13 Influenza Type B Ag negative (Negative) 11/29/23 17:13 SARS-CoV-2 Ag (Rapid) negative (Negative) 11/29/23 17:13 Vitals Last Vital Signs Temp 96.9 F L 12/01/23 07:56 Pulse 92 12/01/23 07:56 Resp 18 12/01/23 07:56 BP 132/76 12/01/23 07:56 Pulse Ox 96 12/01/23 07:56 O2 Del Method Room Air 12/01/23 07:56 Discharge Plan Discharge Patient Disposition: Home Condition: Stable Prescriptions: New ciprofloxacin HCl [Cipro] 500 mg tablet 500 mg PO BID Qty: 20 0RF Rx Instructions: start night of 11/30 Continued tramadol 50 mg tablet 50 mg PO Q6H PRN (Reason: Pain) omeprazole 20 mg capsule,delayed release(DR/EC) 20 mg PO DAILY pravastatin 10 mg tablet 10 mg PO DAILY sumatriptan succinate 100 mg tablet 100 mg PO DAILY PRN (Reason: Migraine Headache) Held meloxicam 7.5 mg tablet 7.5 mg PO DAILY Hold Instructions: Resume on 12/04/23. If you are taking ibuprofen for the kidney pain, otherwise tylenol and continue this medication Discharge Orders: Discharge Order (Routine); Ordered 12/01/23 Ordered By: Medhat Peraza Referrals: Rich Jones [Primary Care Provider] - 12/08/23 1:20 pm Discharge Diet: Advance as tolerated Discharge Activity: Increase activity as tolerated Patient Instructions: Pyelonephritis Activity Restrictions/Additional Instructions: Increase water intake. May take Tylenol 1000 mg p.o. every 6 hours as needed May also take ibuprofen 400 mg p.o. every 6 hours as needed Advised to alternate Tylenol and ibuprofen. If taking ibuprofen hold meloxicam You will be notified if your infection is not sensitive to the antibiotic prescribed Please call urologist that you saw at [facility] for follow-up appointment Discharge Attestations Time Spent in Discharge Care*: less than 30 min Quality Metrics Clinical Quality Measures [ No reported AMI, CVA or VTE this stay] Coding Level of Care Code Acute Code for [facility] Fwd Diagnoses Pyelonephritis N12 Dehydration E86.0 Gastroesophageal reflux disease, unspecified whether esophagitis present K21.9 Esophagitis presence: esophagitis presence not specified Other chronic pain G89.29 Chronic pain type: other chronic pain
[2023-12-01] MEDS: ketorolac 10 mg Tablet PO (10:31)
== END 2023-12-01 11:25 | disposition home or self-care (01) ==
LOC: ER 18:53 → MEDSURG 20:02
PROVIDERS: Emergency Medicine; Admitting Provider Internal Medicine; Emergency Provider Emergency Medicine; PCP Family Medicine; Visit Provider Internal Medicine
DX: N12 Tubulo-interstitial nephritis, not specified as acute or chronic (principal); E86.0 Dehydration; K21.9 Gastro-esophageal reflux disease without esophagitis; G89.29 Other chronic pain
CPT/HCPCS: 36415; 71045; 74176; 80048; 80053; 81000; 81001; 83605; 83690; 83735; 84100; 85025; 87040; 87077; 87086; 87184; 87186; 87400; 87426; 87804; 93005; 96361; 96365; 96372; 96375; 99285; G0378; J0696; J1650; J1885; J2270; J2405; J7030; J7799

== ENCOUNTER 2024-03-23 10:12 | Outpatient (CLI) | payer BC, OTHER, SELFPAY ==
--- NOTE | 2024-03-23 10:19 | MM_ITS ---
WS: [id number] BILATERAL 3D TOMOSYNTHESIS DIGITAL SCREENING MAMMOGRAPHY WITH CAD CLINICAL INFORMATION: SCREENING HISTORY: Screening mammogram. No current complaints. COMPARISON: 2022 TECHNIQUE: Bilateral CC and MLO views. FINDINGS: Scattered fibroglandular densities bilaterally. No suspicious focal mass, asymmetry, calcifications, or architectural distortion. No evidence of malignancy. Few incidental punctate calcifications. MM/[place] [id number] IMPRESSION: BI-RADS: 2-Benign FOLLOW UP: 1 Year Follow-up Recommend return to annual screening mammography.
== END 2024-03-23 10:13 | disposition home or self-care (01) ==
LOC: RAD 10:13
PROVIDERS: PCP Family Medicine; Visit Provider Registered Nurse
DX: Z12.31 Encounter for screening mammogram for malignant neoplasm of breast (principal); R92.323 Mammographic fibroglandular density, bilateral breasts; R92.1 Mammographic calcification found on diagnostic imaging of breast
CPT/HCPCS: 77063; 77067

== ENCOUNTER → 2025-02-14 08:07 | Outpatient (BNVA) | payer OTHER, BC, SELFPAY | PROVIDERS: PCP Family Medicine; Visit Provider Podiatrist Foot & Ankle Surgery | DX: M79.671 Pain in right foot (principal); L60.3 Nail dystrophy; G57.61 Lesion of plantar nerve, right lower limb; M84.374S Stress fracture, right foot, sequela; X58.XXXS Exposure to other specified factors, sequela | CPT/HCPCS: 73630 ==